=== PATIENT | male | born 1995 | race Two or more races ===

== ENCOUNTER 2021-08-15 12:18 | Emergency (ER) | payer SELFPAY ==
[~2021-08-15] VITALS: Ht 157.5 cm; Wt 54.4 kg
[2021-08-15] MEDS ORDERED: LIDOCAINE HCL 1% 20 ML VIAL ONE (12:42)
[2021-08-15] MEDS ORDERED: LIDOCAINE HCL 1% 20 ML VIAL IJ ONE (12:45)
--- NOTE | 2021-08-15 13:00 | NUR ---
PT IS IN ROOM #2B. DR SHETTY EVALUATED THE PT.
--- NOTE | 2021-08-15 14:22 | NUR ---
PT WAS D/C'd TO HOME. D/C INSTRUCTIONS GIVEN TO THE PT BY DR SHETTY.
[2021-08-15 14:24] VITALS: BP 134/71
== END 2021-08-15 14:25 | disposition home or self-care (01) ==
LOC: ER 12:21
DX: S61.412A Laceration without foreign body of left hand, initial encounter (principal); W26.0XXA Contact with knife, initial encounter; Y93.G1 Activity, food preparation and clean up; Y92.89 Other specified places as the place of occurrence of the external cause
CPT/HCPCS: 12001; 73120; 99283; J3490; A4663

== ENCOUNTER 2021-08-17 14:05 | Emergency (ER) | payer SELFPAY ==
[~2021-08-17] VITALS: Ht 157.5 cm; Wt 54.4 kg
[2021-08-17] MEDS ORDERED: SULF1TAB48 PO (16:31)
--- NOTE | 2021-08-17 16:33 | NUR ---
Patient discharged to home in stable condition. Written and verbal after care instructions given. Patient verbalizes understanding of instructions. Stressed follow up or return to ER for worsening s/s.
== END 2021-08-17 16:38 | disposition home or self-care (01) ==
LOC: ER 14:05
DX: S61.432D Puncture wound without foreign body of left hand, subsequent encounter (principal); W26.0XXD Contact with knife, subsequent encounter
CPT/HCPCS: A4663

== ENCOUNTER 2021-08-19 15:38 | Emergency (ER) | payer OTHER ==
[~2021-08-19] VITALS: Ht 157.5 cm; Wt 54.4 kg
[~2021-08-19 15:38] MED LIST: SULF1TAB48 PO
--- NOTE | 2021-08-19 16:25 | NUR ---
Dr Dixon at the bedside for eval.
[2021-08-19 17:16] VITALS: BP 124/78
== END 2021-08-19 17:17 | disposition home or self-care (01) ==
LOC: ER 15:44
DX: S61.411D Laceration without foreign body of right hand, subsequent encounter (principal); S64.49 Injury of digital nerve of other finger; W26.0XXD Contact with knife, subsequent encounter; R20.0 Anesthesia of skin
CPT/HCPCS: A4663